=== PATIENT | male | born 1995 | race Caucasian/White ===

== ENCOUNTER → 2024-03-16 13:05 | Outpatient (REF) | payer OTHER, SELFPAY | LOC: HWRAD 13:05 | PROVIDERS: ATTENDING PHYSICIAN Family Medicine | DX: R03.0 Elevated blood-pressure reading, without diagnosis of hypertension (principal) | CPT/HCPCS: 76775 ==

== ENCOUNTER → 2024-05-26 10:37 | Outpatient (REF) | payer OTHER, SELFPAY | LOC: RCS 10:37 | PROVIDERS: ATTENDING PHYSICIAN Family Medicine | DX: R00.2 Palpitations (principal) | CPT/HCPCS: 93017 ==

== ENCOUNTER → 2024-05-31 08:20 | Outpatient (REF) | payer OTHER, SELFPAY | LOC: RCS 08:20 | PROVIDERS: ATTENDING PHYSICIAN Family Medicine | DX: R00.2 Palpitations (principal); R07.89 Other chest pain | CPT/HCPCS: 93225; 93226 ==